=== PATIENT | female | born 1985 | race Caucasian/White ===

== ENCOUNTER 2018-11-17 23:45 | Inpatient (IN) | payer BC, MEDICAID ==
[2018-11-18] MEDS: ONDANSETRON 4 MG INJ IV (01:02)
[2018-11-18] MEDS: SOD CHLORIDE 0.9% 1,000 ML IV ×4 (01:03→19:10)
[2018-11-18] MEDS: morphine 4 MG/ML VIAL IV (01:03)
[2018-11-18 01:04] LABS: ADD MAN DIFF? NO
[2018-11-18 01:18] LABS: ABNORMAL IP MESSAGE 1; BASOPHILS % 0.2 % (0.0-2.0); EOSINOPHILS # 0.1 10^3/ul (0.0-0.5); EOSINOPHILS % 0.7 % (0.0-7.0); HEMOGLOBIN 11.6 g/dl (12.0-16.0); LYMPHOCYTES # 1.7 10^3/ul (0.8-2.9); LYMPHOCYTES % 14.8 % (15.0-51.0); MEAN CORPUSCULAR HEMOGLOBIN 22.1 pg (29.0-33.0); MEAN CORPUSCULAR HGB CONC 30.5 g/dl (32.0-37.0); MEAN CORPUSCULAR VOLUME 72.5 fl (82.0-101.0); MONOCYTE # 0.9 10^3/ul (0.3-0.9); MONOCYTES % 7.8 % (0.0-11.0); NEUTROPHIL # 8.8 10^3/ul (1.6-7.5); NEUTROPHILS % 76.2 % (39.0-77.0); PLATELET COUNT 253 10^3/UL (140-415); RED BLOOD COUNT 5.24 10^6/ul (4.20-5.40); RED CELL DISTRIBUTION WIDTH 14.8 % (11.5-14.5)
[2018-11-18 01:18] LABS: WHITE BLOOD COUNT 11.5 10^3/ul (4.8-10.8)
[2018-11-18 01:23] LABS: ALANINE AMINOTRANSFERASE 59 IU/L (13-69); ALBUMIN 4.3 g/dl (3.3-4.9); ALBUMIN/GLOBULIN RATIO 1.34; ALKALINE PHOSPHATASE 66 IU/L (42-121); AMYLASE 77 U/L (11-123); ANION GAP 7 (5-13); ASPARTATE AMINO TRANSFERASE 72 IU/L (15-46); BILIRUBIN,INDIRECT 0.3 mg/dl (0-1.1); BILIRUBIN,TOTAL 0.3 mg/dl (0.2-1.3); BLOOD UREA NITROGEN 12 mg/dl (7-20); CALCIUM 9.5 mg/dl (8.4-10.2); CARBON DIOXIDE 28 mmol/L (21-31); CHLORIDE 104 mmol/L (97-110); CREATININE 0.55 mg/dl (0.44-1.00); Estimated GFR > 60 mL/min (>60); GLUCOSE 113 mg/dl (70-220); LIPASE 70 U/L (23-300); POTASSIUM 4.1 mmol/L (3.5-5.1); SODIUM 139 mmol/L (135-144); TOTAL PROTEIN 7.5 g/dl (6.1-8.1)
[2018-11-18 01:27] LABS: INR 0.93; PROTIME 12.6 Sec (11.9-14.9)
[2018-11-18 01:32] LABS: ADD UMIC YES; UR AMORPHOUS CRYSTAL MANY /HPF (NONE SEEN); UR ASCORBIC ACID NEGATIVE (NEGATIVE); UR BILIRUBIN (Dip) NEGATIVE (NEGATIVE); UR BLOOD (Dip) NEGATIVE (NEGATIVE); UR CLARITY CLOUDY (CLEAR); UR COLOR YELLOW (YELLOW); UR GLUCOSE (Dip) NEGATIVE (NEGATIVE); UR KETONES (Dip) NEGATIVE (NEGATIVE); UR LEUKOCYTE ESTERASE (Dip) NEGATIVE Leu/ul (NEGATIVE); UR MUCUS FEW /HPF (NONE SEEN); UR NITRITE (Dip) NEGATIVE (NEGATIVE); UR RBC 1 /HPF (0-5); UR SPECIFIC GRAVITY (Dip) 1.015 (1.003-1.030); UR SQUAMOUS EPITHELIAL CELL FEW /HPF (FEW); UR TOTAL PROTEIN (Dip) NEGATIVE (NEGATIVE); UR UROBILINOGEN (Dip) NEGATIVE (NEGATIVE); UR WBC 4 /HPF (0-5)
[2018-11-18 01:35] LABS: POSITIVE DIFF @See below
[2018-11-18 01:40] LABS: PARTIAL THROMBOPLASTIN TIME 25.8 Sec (23.0-35.0)
[2018-11-18] MEDS: IOHEXOL 300MG/ML 150 ML BTL (01:49)
[2018-11-18] MEDS: SOD CHLORIDE 0.9% 100 ML (01:49)
[2018-11-18] MEDS ORDERED: NACL 0.9% 3 ML SYG IV (03:00)
[2018-11-18] MEDS ORDERED: DOCUSATE SODIUM 100 MG CAP PO (03:00)
[2018-11-18] MEDS ORDERED: ONDANSETRON 4 MG INJ IV (03:00)
[2018-11-18] MEDS: PIPER-TAZO 3.375 GM IV (PMX) 100 ML IVPB ×4 (03:06→21:13)
[2018-11-18 04:01] LABS: IRON 57 ug/dl (35-150)
[2018-11-18 04:10] LABS: % IRON SATURATION 15 % SAT (22-52); TOTAL IRON BINDING CAPACITY 389 ug/dl (241-421)
[2018-11-18 04:37] LABS: FERRITIN 16.4 ng/ml (6.2-137.0)
[2018-11-19] MEDS: PIPER-TAZO 3.375 GM IV (PMX) 100 ML IVPB ×4 (03:21→21:52)
[2018-11-19 05:11] LABS: ADD MAN DIFF? NO
[2018-11-19 05:16] LABS: WHITE BLOOD COUNT 5.3 10^3/ul (4.8-10.8)
[2018-11-19 05:16] LABS: ABNORMAL IP MESSAGE 1; BASOPHILS % 0.4 % (0.0-2.0); EOSINOPHILS # 0.2 10^3/ul (0.0-0.5); EOSINOPHILS % 3.6 % (0.0-7.0); HEMATOCRIT 33.3 % (37.0-47.0); HEMOGLOBIN 10.1 g/dl (12.0-16.0); LYMPHOCYTES # 1.8 10^3/ul (0.8-2.9); LYMPHOCYTES % 32.8 % (15.0-51.0); MEAN CORPUSCULAR HGB CONC 30.3 g/dl (32.0-37.0); MEAN CORPUSCULAR VOLUME 72.5 fl (82.0-101.0); MEAN PLATELET VOLUME 12.7 fl (7.4-10.4); MONOCYTE # 0.5 10^3/ul (0.3-0.9); MONOCYTES % 9.2 % (0.0-11.0); NEUTROPHIL # 2.9 10^3/ul (1.6-7.5); PLATELET COUNT 201 10^3/UL (140-415); RED BLOOD COUNT 4.59 10^6/ul (4.20-5.40); RED CELL DISTRIBUTION WIDTH 15.3 % (11.5-14.5)
[2018-11-19 05:24] LABS: POSITIVE DIFF @See below
[2018-11-19 05:29] LABS: ALANINE AMINOTRANSFERASE 73 IU/L (13-69); ALBUMIN 3.6 g/dl (3.3-4.9); ALBUMIN/GLOBULIN RATIO 1.33; ALKALINE PHOSPHATASE 53 IU/L (42-121); ANION GAP 8 (5-13); ASPARTATE AMINO TRANSFERASE 35 IU/L (15-46); BILIRUBIN,INDIRECT 0.7 mg/dl (0-1.1); BILIRUBIN,TOTAL 0.7 mg/dl (0.2-1.3); BLOOD UREA NITROGEN 9 mg/dl (7-20); CALCIUM 8.7 mg/dl (8.4-10.2); CARBON DIOXIDE 25 mmol/L (21-31); CHLORIDE 107 mmol/L (97-110); CREATININE 0.65 mg/dl (0.44-1.00); Estimated GFR > 60 mL/min (>60); GLUCOSE 84 mg/dl (70-220); POTASSIUM 3.9 mmol/L (3.5-5.1); SODIUM 140 mmol/L (135-144); TOTAL PROTEIN 6.3 g/dl (6.1-8.1)
[2018-11-19 05:42] LABS: MAGNESIUM 2.1 mg/dl (1.7-2.5)
[2018-11-19] MEDS: SOD CHLORIDE 0.9% 1,000 ML IV ×3 (07:27→19:46)
[2018-11-19] MEDS ORDERED: SEVOFLURANE 15 MIN (16:30)
[2018-11-19] MEDS ORDERED: MIDAZOLAM 1 MG/ML 2 ML INJ (16:37)
[2018-11-19] MEDS: BUPIVACAINE 0.25%/EPI (SDV) 10 ML INJ (17:04)
[2018-11-19] MEDS ORDERED: NEOSTIGMINE 3 MG/3 ML SYRINGE ×2 (17:08→17:25)
[2018-11-19] MEDS ORDERED: ROPIVACAINE 0.5 % 30 ML VIAL (17:08)
[2018-11-19] MEDS ORDERED: ROCURONIUM 50 MG INJ (17:08)
[2018-11-19] MEDS ORDERED: LIDOCAINE 2% (SDV) 5 ML INJ (17:08)
[2018-11-19] MEDS ORDERED: GLYCOPYRROLATE 0.4 MG INJ ×2 (17:08→17:25)
[2018-11-19] MEDS ORDERED: PROPOFOL 20 ML (17:08)
[2018-11-19] MEDS ORDERED: ONDANSETRON 4 MG INJ (17:25)
[2018-11-19] MEDS ORDERED: ONDANSETRON 4 MG INJ IV ×2 (17:30→18:00)
[2018-11-19] MEDS ORDERED: OXYCODONE/ACETAMINOPHEN (5/325) TAB PO (17:30)
[2018-11-19] MEDS ORDERED: morphine 2 MG INJ IV (17:30)
[2018-11-19] MEDS ORDERED: SUGAMMADEX SODIUM 200 MG/2 ML VIAL IV (17:41)
[2018-11-19] MEDS ORDERED: MEPERIDINE 25 MG INJ IV (18:00)
[2018-11-19] MEDS ORDERED: DIPHENHYDRAMINE 50 MG INJ IV (18:00)
[2018-11-19] MEDS ORDERED: FENTAnyl 50 MCG/ML VIAL IV (18:00)
[2018-11-19] MEDS ORDERED: METOCLOPRAMIDE 10 MG INJ IV (18:00)
[2018-11-19] MEDS ORDERED: KETOROLAC 30 MG INJ IV (18:00)
[2018-11-19] MEDS: HYDROmorphONE 1 MG/5 ML IV SYRINGE IV ×2 (18:09→18:32)
[2018-11-19] MEDS: HYDROmorphONE 0.5 MG/0.5 ML SYG IV (21:51)
[2018-11-20] MEDS: OXYCODONE/ACETAMINOPHEN (5/325) TAB PO ×2 (01:30→07:37)
[2018-11-20] MEDS: PIPER-TAZO 3.375 GM IV (PMX) 100 ML IVPB (03:27)
[2018-11-20 05:17] LABS: ADD MAN DIFF? NO
[2018-11-20 05:19] LABS: ABNORMAL IP MESSAGE 1; BASOPHILS % 0.2 % (0.0-2.0); HEMATOCRIT 34.8 % (37.0-47.0); HEMOGLOBIN 10.7 g/dl (12.0-16.0); LYMPHOCYTES # 1.2 10^3/ul (0.8-2.9); LYMPHOCYTES % 14.7 % (15.0-51.0); MEAN CORPUSCULAR HEMOGLOBIN 22.3 pg (29.0-33.0); MEAN CORPUSCULAR HGB CONC 30.7 g/dl (32.0-37.0); MEAN CORPUSCULAR VOLUME 72.5 fl (82.0-101.0); MEAN PLATELET VOLUME 12.8 fl (7.4-10.4); MONOCYTE # 0.7 10^3/ul (0.3-0.9); MONOCYTES % 8.1 % (0.0-11.0); NEUTROPHIL # 6.3 10^3/ul (1.6-7.5); NEUTROPHILS % 76.8 % (39.0-77.0); PLATELET COUNT 226 10^3/UL (140-415); RED CELL DISTRIBUTION WIDTH 14.6 % (11.5-14.5)
[2018-11-20 05:19] LABS: WHITE BLOOD COUNT 8.2 10^3/ul (4.8-10.8)
[2018-11-20 05:33] LABS: POSITIVE DIFF @See below
[2018-11-20 05:42] LABS: ALANINE AMINOTRANSFERASE 80 IU/L (13-69); ALBUMIN 3.6 g/dl (3.3-4.9); ALBUMIN/GLOBULIN RATIO 1.33; ALKALINE PHOSPHATASE 62 IU/L (42-121); ANION GAP 8 (5-13); ASPARTATE AMINO TRANSFERASE 38 IU/L (15-46); BILIRUBIN,INDIRECT 0.7 mg/dl (0-1.1); BILIRUBIN,TOTAL 0.7 mg/dl (0.2-1.3); BLOOD UREA NITROGEN 5 mg/dl (7-20); CALCIUM 9.1 mg/dl (8.4-10.2); CARBON DIOXIDE 22 mmol/L (21-31); CHLORIDE 107 mmol/L (97-110); CREATININE 0.55 mg/dl (0.44-1.00); Estimated GFR > 60 mL/min (>60); GLUCOSE 94 mg/dl (70-220); POTASSIUM 4.4 mmol/L (3.5-5.1); SODIUM 137 mmol/L (135-144); TOTAL PROTEIN 6.3 g/dl (6.1-8.1)
[2018-11-20 05:43] LABS: ANION GAP 10 (5-13); BLOOD UREA NITROGEN 5 mg/dl (7-20); CALCIUM 8.7 mg/dl (8.4-10.2); CARBON DIOXIDE 22 mmol/L (21-31); CHLORIDE 106 mmol/L (97-110); CREATININE 0.54 mg/dl (0.44-1.00); Estimated GFR > 60 mL/min (>60); GLUCOSE 97 mg/dl (70-220); MAGNESIUM 1.8 mg/dl (1.7-2.5); POTASSIUM 3.9 mmol/L (3.5-5.1); SODIUM 138 mmol/L (135-144)
[2018-11-20] MEDS: HYDROCODONE/APAP (10/325) TAB PO ×3 (13:02→23:08)
[2018-11-20] MEDS: ACETAMINOPHEN 325 MG TAB PO (21:43)
[2018-11-20] MEDS: CEPHALEXIN 500 MG CAP PO (21:43)
[2018-11-21 05:14] LABS: ADD MAN DIFF? NO
[2018-11-21 05:23] LABS: WHITE BLOOD COUNT 6.3 10^3/ul (4.8-10.8)
[2018-11-21 05:23] LABS: ABNORMAL IP MESSAGE 1; BASOPHILS % 0.3 % (0.0-2.0); EOSINOPHILS # 0.2 10^3/ul (0.0-0.5); EOSINOPHILS % 2.5 % (0.0-7.0); HEMATOCRIT 33.6 % (37.0-47.0); HEMOGLOBIN 10.3 g/dl (12.0-16.0); LYMPHOCYTES # 1.7 10^3/ul (0.8-2.9); MEAN CORPUSCULAR HEMOGLOBIN 21.8 pg (29.0-33.0); MEAN CORPUSCULAR HGB CONC 30.7 g/dl (32.0-37.0); MEAN CORPUSCULAR VOLUME 71.2 fl (82.0-101.0); MEAN PLATELET VOLUME 12.9 fl (7.4-10.4); MONOCYTE # 0.9 10^3/ul (0.3-0.9); MONOCYTES % 13.5 % (0.0-11.0); NEUTROPHIL # 3.6 10^3/ul (1.6-7.5); NEUTROPHILS % 56.5 % (39.0-77.0); PLATELET COUNT 221 10^3/UL (140-415); RED BLOOD COUNT 4.72 10^6/ul (4.20-5.40); RED CELL DISTRIBUTION WIDTH 15.1 % (11.5-14.5)
[2018-11-21 05:34] LABS: POSITIVE DIFF @See below
[2018-11-21 05:50] LABS: ANION GAP 5 (5-13); BLOOD UREA NITROGEN 4 mg/dl (7-20); CARBON DIOXIDE 26 mmol/L (21-31); CHLORIDE 108 mmol/L (97-110); CREATININE 0.53 mg/dl (0.44-1.00); Estimated GFR > 60 mL/min (>60); GLUCOSE 94 mg/dl (70-220); PHOSPHORUS 3.7 mg/dl (2.5-4.9); POTASSIUM 3.7 mmol/L (3.5-5.1); SODIUM 139 mmol/L (135-144)
[2018-11-21 06:32] LABS: ADD UMIC NO; UR ASCORBIC ACID NEGATIVE (NEGATIVE); UR BILIRUBIN (Dip) NEGATIVE (NEGATIVE); UR BLOOD (Dip) NEGATIVE (NEGATIVE); UR CLARITY CLEAR (CLEAR); UR COLOR YELLOW (YELLOW); UR GLUCOSE (Dip) NEGATIVE (NEGATIVE); UR KETONES (Dip) 1+ mg/dL (NEGATIVE); UR LEUKOCYTE ESTERASE (Dip) NEGATIVE Leu/ul (NEGATIVE); UR NITRITE (Dip) NEGATIVE (NEGATIVE); UR SPECIFIC GRAVITY (Dip) 1.008 (1.003-1.030); UR TOTAL PROTEIN (Dip) NEGATIVE (NEGATIVE); UR UROBILINOGEN (Dip) NEGATIVE (NEGATIVE)
[2018-11-21] MEDS: HYDROCODONE/APAP (10/325) TAB PO ×2 (06:50→13:24)
[2018-11-21] MEDS: BISACODYL (EC) 5 MG TAB PO (06:50)
[2018-11-21] MEDS: CEPHALEXIN 500 MG CAP PO (09:01)
== END 2018-11-21 18:20 | disposition home or self-care (01) | DRG 419 ==
LOC: FTE 23:45 → MS1 11-18 02:46
PROC: 0FT44ZZ Resection of Gallbladder, Percutaneous Endoscopic Approach (ICD-10-PCS; principal; 2018-11-19 16:30)
DX: K80.12 Calculus of gallbladder with acute and chronic cholecystitis without obstruction (principal); I10 Essential (primary) hypertension; D50.9 Iron deficiency anemia, unspecified
CPT/HCPCS: 36415; 74177; 76705; 78226; 80048; 80053; 81001; 81003; 81025; 82150; 82728; 83540; 83690; 83735; 84100; 85025; 85610; 85730; 87086; 88304; 96374; 96375; 99285-25

== ENCOUNTER 2018-11-23 02:51 | Emergency (ER) | payer BC ==
[2018-11-23 04:48] LABS: ADD MAN DIFF? NO
[2018-11-23] MEDS: SOD CHLORIDE 0.9% 1,000 ML IV (04:48)
[2018-11-23] MEDS: ONDANSETRON 4 MG INJ IV (04:48)
[2018-11-23] MEDS: ACETAMINOPHEN 325 MG TAB PO (04:48)
[2018-11-23] MEDS: morphine 2 MG INJ IV (04:48)
[2018-11-23 04:54] LABS: ABNORMAL IP MESSAGE 1; BASOPHILS % 0.1 % (0.0-2.0); EOSINOPHILS % 0.1 % (0.0-7.0); HEMATOCRIT 37.4 % (37.0-47.0); HEMOGLOBIN 11.7 g/dl (12.0-16.0); LYMPHOCYTES # 0.7 10^3/ul (0.8-2.9); LYMPHOCYTES % 5.8 % (15.0-51.0); MEAN CORPUSCULAR HEMOGLOBIN 22.2 pg (29.0-33.0); MEAN CORPUSCULAR HGB CONC 31.3 g/dl (32.0-37.0); MEAN CORPUSCULAR VOLUME 71.1 fl (82.0-101.0); MEAN PLATELET VOLUME 12.8 fl (7.4-10.4); MONOCYTE # 0.8 10^3/ul (0.3-0.9); MONOCYTES % 6.6 % (0.0-11.0); NEUTROPHIL # 10.8 10^3/ul (1.6-7.5); PLATELET COUNT 228 10^3/UL (140-415); RED BLOOD COUNT 5.26 10^6/ul (4.20-5.40); RED CELL DISTRIBUTION WIDTH 14.8 % (11.5-14.5)
[2018-11-23 04:54] LABS: WHITE BLOOD COUNT 12.4 10^3/ul (4.8-10.8)
[2018-11-23 05:10] LABS: ALANINE AMINOTRANSFERASE 70 IU/L (13-69); ALBUMIN 4.3 g/dl (3.3-4.9); ALKALINE PHOSPHATASE 67 IU/L (42-121); ANION GAP 12 (5-13); ASPARTATE AMINO TRANSFERASE 52 IU/L (15-46); BILIRUBIN,INDIRECT 0.4 mg/dl (0-1.1); BILIRUBIN,TOTAL 0.4 mg/dl (0.2-1.3); BLOOD UREA NITROGEN 12 mg/dl (7-20); CARBON DIOXIDE 21 mmol/L (21-31); CHLORIDE 104 mmol/L (97-110); CREATININE 0.47 mg/dl (0.44-1.00); Estimated GFR > 60 mL/min (>60); GLUCOSE 105 mg/dl (70-220); LIPASE 39 U/L (23-300); POTASSIUM 4.1 mmol/L (3.5-5.1); SODIUM 137 mmol/L (135-144); TOTAL PROTEIN 7.6 g/dl (6.1-8.1)
[2018-11-23 05:14] LABS: POSITIVE DIFF @See below
[2018-11-23 05:31] LABS: URINE BLOOD (Dip) POC Negative (NEGATIVE); URINE GLUCOSE (Dip) POC Negative (NEGATIVE); URINE KETONES (Dip) POC 2+ (NEGATIVE); URINE LEUKOCYTE EST (Dip) POC Negative (NEGATIVE); URINE NITRITE (Dip) POC Negative (NEGATIVE); URINE TOTAL PROTEIN POC Negative (NEGATIVE)
[2018-11-23] MEDS: SOD CHLORIDE 0.9% 100 ML (05:43)
[2018-11-23] MEDS: IOHEXOL 300MG/ML 150 ML BTL (05:43)
== END 2018-11-23 08:35 | disposition home or self-care (01) ==
LOC: E/R 02:51
DX: G89.18 Other acute postprocedural pain (principal); D64.9 Anemia, unspecified; R10.9 Unspecified abdominal pain
CPT/HCPCS: 36415; 71045; 74177; 80053; 81003; 81025; 83690; 85025; 96361; 96374; 96375; 99285-25